=== PATIENT | female | born 1980 | race African-American/Black ===

== ENCOUNTER 2020-06-12 17:15 | Emergency (ER) | payer OTHER ==
--- NOTE | 2020-06-12 20:06 | RAD REPORT ---
EXAM DESCRIPTION: Meghann Single View06/12/2020 7:49 pm CLINICAL HISTORY: Chest pain COMPARISON: none FINDINGS: The lungs appear clear of acute infiltrate. The heart is normal size IMPRESSION: No acute abnormalities displayed
[2020-06-12 20:13] LABS: Urine Blood 3+ (NEG); Urine Glucose NEGATIVE (NEG); Urine Protein NEGATIVE (NEG); Urine pH 6.5 (5.0-7.0)
[2020-06-12 20:17] LABS: Absolute Lymphocytes (CBC) 1.8 K/uL (0.7-4.9); Basophils % 1.2 % (0-1.3); Hematocrit 35.3 % (36.0-45.0); MPV 9.2 fL (7.6-11.3); RBC Red Blood Cell Count 4.06 M/uL (3.86-4.86)
[2020-06-12 20:18] LABS: Protime INR 1.09
[2020-06-12 20:36] LABS: ALT/SGPT 25 U/L (12-78); AST/SGOT 22 U/L (15-37); Albumin 3.8 g/dL (3.4-5.0); Alkaline Phosphatase 108 U/L (45-117); BUN Blood Urea Nitrogen 9 mg/dL (7-18); Bicarbonate 26 mmol/L (21-32); Bilirubin Direct < 0.1 mg/dL (0-0.2); Bilirubin Total 0.2 mg/dL (0.2-1.0); Glucose Level 97 mg/dL (74-106); Magnesium 1.9 mg/dL (1.8-2.4); NT PRO-BNP 32 pg/mL (<125); Potassium 3.6 mmol/L (3.5-5.1); Protein, Total 8.2 g/dL (6.4-8.2); Sodium Level 141 mmol/L (136-145); Troponin (Emerg Dept Use Only) < 0.02 ng/mL (0.0-0.045)
[2020-06-12 20:57] LABS: Barbiturates NEGATIVE (NEGATIVE); Benzodiazepines NEGATIVE (NEGATIVE); Cocaine NEGATIVE (NEGATIVE); METHAMPHETAM NEGATIVE (NEGATIVE); Methadone NEGATIVE (NEGATIVE); Opiates NEGATIVE (NEGATIVE); Phencyclidine NEGATIVE (NEGATIVE); THC Cannibis NEGATIVE (NEGATIVE)
--- NOTE | 2020-06-12 21:08 | ER ---
Nurse's Notes [facility] Name: Abelardo Dejesus Age: 40 yrs Sex: Female : 1980 Arrival Date: 06/12/2020 Time: 17:20 Bed 7 Private MD: Diagnosis: Palpitations Presentation: 06/12 17:24 Chief complaint: Patient states: has been having anxiety attacks since last week. She sv stated that she went to get her physical done and they sent her to a welder shielded metal arc to get an EKG done. Her welder shielded metal arc gave her another f/u appt for June 16. But states since then feels "like my heart is melting. I think I'm thinking too much about it but I don't know." Is scheduled for an Echo on . Coronavirus screen: Client denies travel out of the [place] in the last 14 days. At this time, the client does not indicate any symptoms associated with coronavirus-19. Ebola Screen: No symptoms or risks identified at this time. Risk Assessment: Do you want to hurt yourself or someone else? Patient reports no desire to harm self or others. Onset of symptoms was May 2020. 17:24 Method Of Arrival: Ambulatory sv 17:24 Acuity: JOSESITO 3 sv 17:28 Initial Sepsis Screen: Does the patient meet any 2 criteria? No. Patient's initial sv sepsis screen is negative. Does the patient have a suspected source of infection? No. Patient's initial sepsis screen is negative. Triage Assessment: 17:24 General: Appears in no apparent distress. comfortable, Behavior is calm, cooperative, sv appropriate for age. Pain: Denies pain. Neuro: Level of Consciousness is awake, alert, obeys commands, Oriented to person, place, time, situation, Moves all extremities. Full function Gait is steady. Respiratory: Respiratory effort is even, unlabored, Respiratory pattern is regular, symmetrical. 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 - Social history:: Smoking status: . Screenin:30 Abuse screen: Denies threats or abuse. Denies injuries from another. Nutritional screening: No deficits noted. Tuberculosis screening: No symptoms or risk factors identified. Fall Risk None identified. Assessment: 17:34 Reassessment: Received VO from Dr Castaneda for EKG. sv 19:15 General: Appears in no apparent distress. Anxious. Behavior is cooperative, anxious. wh Pain: Denies pain. Neuro: Level of Consciousness is awake, alert, obeys commands, Oriented to person, place, time, situation. Cardiovascular: Capillary refill < 3 seconds. Respiratory: Airway is patent Respiratory effort is even, unlabored, Respiratory pattern is regular, symmetrical. GI: Abdomen is flat, non-distended. : No signs and/or symptoms were reported regarding the genitourinary system. EENT: No signs and/or symptoms were reported regarding the EENT system. Derm: Skin is intact, is healthy with good turgor, Skin is pink, warm \\T\\ dry. normal. Musculoskeletal: Circulation, motion, and sensation intact. 20:15 Reassessment: Patient appears in no apparent distress at this time. No changes from previously documented assessment. Patient and/or family updated on plan of care and expected duration. Pain level reassessed. Patient is alert, oriented x 3, equal unlabored respirations, skin warm/dry/pink. 21:21 Reassessment: Patient appears in no apparent distress at this time. Patient and/or family updated on plan of care and expected duration. Pain level reassessed. Patient is alert, oriented x 3, equal unlabored respirations, skin warm/dry/pink. Vital Signs: 17:28 BP 109 / 75; Pulse 76; Resp 16; Temp 98; Pulse Ox 99% ; Weight 92.99 kg; Height 5 ft. 6 sv in. (167.64 cm); Pain 0/10; 20:16 BP 110 / 91; Pulse 78; Resp 18; Pulse Ox 99% on R/A; wh 21:21 BP 107 / 68; Pulse 72; Resp 18; Pulse Ox 99% on R/A; wh 17:28 Body Mass Index 33.09 (92.99 kg, 167.64 cm) sv ED Course: 17:20 Patient arrived in ED. mr 17:24 Arm band placed on. sv 17:27 Triage completed. sv 17:34 EKG completed in triage. Results shown to MD. sv 19:14 Harvinder Pearson, YAJAIRA is PHCP. pm1 19:14 Abner Franco MD is Attending Physician. pm1 19:26 Farhat Koenig, RN is Primary Nurse. 19:30 Patient has correct armband on for positive identification. Placed in gown. Bed in low wh position. Call light in reach. Side rails up X 1. court monitor on. Pulse ox on. NIBP on. 19:45 Inserted saline lock: 22 gauge in right forearm, using aseptic technique. Blood wh collected. 19:50 XRAY Chest (1 view) In Process Unspecified. EDMS 21:22 No provider procedures requiring assistance completed. IV discontinued, intact, wh bleeding controlled, No redness/swelling at site. Administered Medications: No medications were administered Outcome: 21:07 Discharge ordered by . pm1 21:22 Discharged to home ambulatory. wh 21:22 Condition: stable 21:22 Discharge instructions given to patient, Instructed on discharge instructions, follow up and referral plans. POC Demonstrated understanding of instructions, follow-up care, POC 21:22 Patient left the ED. Signatures: Dispatcher [employer] EDNH Romina Richardson RN RN Moira Justice mr Harvinder Pearson NP STORE FACILITY TECHNICIAN pm1 Farhat Koenig, NORMAN AUSTIN Corrections: (The following items were deleted from the chart) 17:30 17:24 Chief complaint: Patient states: has been having anxiety attacks since last week. sv She stated that she went to get her physical done and they sent her to a welder shielded metal arc to get an EKG done. Her welder shielded metal arc gave her another f/u appt for June 16. But states since then feels "like my heart is melting. I think I'm thinking too much about it but I don't know." sv 17:49 17:28 BP 109 / 75; Pulse 76bpm; Resp 16bpm; Pulse Ox 99%; Temp 98F; 92.99 kg; Height 5 sv ft. 6 in.; BMI: 33.0; sv
--- NOTE | 2020-06-12 21:08 | EDPHYS ---
Physician Documentation [facility] Name: Abelardo Dejesus Age: 40 yrs Sex: Female : 1980 Arrival Date: 06/12/2020 Time: 17:20 Bed 7 Private MD: ED Physician Abner Franco HPI: 06/12 19:39 This 40 yrs old Black Female presents to ER via Ambulatory with complaints of Anxiety. pm1 19:39 The patient presents with a history of heart racing. Context: The symptoms occur at pm1 rest, with anxiety. Onset: The symptoms/episode began/occurred 1 week(s) ago. Duration: The patient or guardian reports multiple episodes. Modifying factors: The symptoms are aggravated by stress, worry about follow up with specialist regarding abnormal EKG per PCP. Associated signs and symptoms: Pertinent negatives: chest pain, cough, fever, SOB, vertigo, vomiting. Severity of symptoms: in the emergency department the symptoms are worse. The patient has been recently seen by a physician: a non categorical preschool teacher, and was scheduled for a chest x-ray in a few weeks. 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 - Social history:: Smoking status: . ROS: 19:39 Constitutional: Negative for fever, chills, and weight loss, Cardiovascular: Negative pm1 for chest pain, palpitations, and edema, Respiratory: Negative for shortness of breath, cough, wheezing, and pleuritic chest pain. 19:39 Abdomen/GI: Negative for abdominal pain, nausea, vomiting, diarrhea, and constipation. 19:39 Back: Negative for injury and pain, MS/Extremity: Negative for injury and deformity, Skin: Negative for injury, rash, and discoloration, Neuro: Negative for headache, weakness, numbness, tingling, and seizure. 19:39 Cardiovascular: Positive for palpitations, Negative for chest pain, edema. Exam: 19:39 Constitutional: This is a well developed, well nourished patient who is awake, alert, pm1 and in no acute distress. Head/Face: Normocephalic, atraumatic. Chest/axilla: Normal chest wall appearance and motion. Nontender with no deformity. No lesions are appreciated. 19:39 Back: No spinal tenderness. No costovertebral tenderness. Full range of motion. Skin: Warm, dry with normal turgor. Normal color with no rashes, no lesions, and no evidence of cellulitis. MS/ Extremity: Pulses equal, no cyanosis. Neurovascular intact. Full, normal range of motion. 19:39 Cardiovascular: Rate: normal, Rhythm: regular, Pulses: no pulse deficits are appreciated, Edema: is not appreciated. 19:39 Respiratory: Exam negative for acute changes, respiratory distress, shortness of breath. 19:39 Neuro: Exam negative for acute changes, Orientation: is normal, Mentation: is normal, Motor: is normal, moves all fours. Vital Signs: 17:28 BP 109 / 75; Pulse 76; Resp 16; Temp 98; Pulse Ox 99% ; Weight 92.99 kg; Height 5 ft. 6 sv in. (167.64 cm); Pain 0/10; 20:16 BP 110 / 91; Pulse 78; Resp 18; Pulse Ox 99% on R/A; wh 21:21 BP 107 / 68; Pulse 72; Resp 18; Pulse Ox 99% on R/A; wh 17:28 Body Mass Index 33.09 (92.99 kg, 167.64 cm) sv MDM: 19:23 Patient medically screened. pm1 20:47 Data reviewed: vital signs. Data interpreted: Pulse oximetry: on room air is 99 %. pm1 Interpretation: normal. 21:07 Counseling: I had a detailed discussion with the patient and/or guardian regarding: the pm1 historical points, exam findings, and any diagnostic results supporting the discharge/admit diagnosis, lab results, radiology results, the need for outpatient follow up, to return to the emergency department if symptoms worsen or persist or if there are any questions or concerns that arise at home. 06/12 19:24 Order name: Basic Metabolic Panel pm1 06/12 19:24 Order name: CBC with Diff; Complete Time: 20:46 pm1 06/12 19:24 Order name: LFT's; Complete Time: 21:07 pm1 06/12 19:24 Order name: Magnesium; Complete Time: 21:07 pm1 06/12 19:24 Order name: NT PRO-BNP; Complete Time: 21:07 pm1 06/12 19:24 Order name: PT-INR; Complete Time: 20:46 pm1 06/12 19:24 Order name: Troponin (emerg Dept Use Only); Complete Time: 21:07 pm1 06/12 19:24 Order name: XRAY Chest (1 view); Complete Time: 20:15 pm1 06/12 19:24 Order name: UDS; Complete Time: 21:07 pm1 06/12 19:25 Order name: Basic Metabolic Panel; Complete Time: 21:07 EDMS 06/12 20:05 Order name: Urine Dipstick--Ancillary (enter results); Complete Time: 20:15 mt 06/12 20:05 Order name: Urine --Ancillary (enter results); Complete Time: 20:15 mt 06/12 20:29 Order name: Add On-Lab pm06/12 20:37 Order name: Thyroid Stimulating Hormone; Complete Time: 21:07 EDMS 06/12 17:47 Order name: EKG; Complete Time: 17:48 sv 06/12 17:47 Order name: EKG - Nurse/Tech; Complete Time: 17:47 sv 06/12 19:24 Order name: Cardiac monitoring; Complete Time: 20:01 pm1 06/12 19:24 Order name: IV Saline Lock; Complete Time: 20:01 pm1 06/12 19:24 Order name: Labs collected and sent; Complete Time: 20:01 pm1 06/12 19:24 Order name: O2 Per Protocol; Complete Time: 20:01 pm1 06/12 19:24 Order name: O2 Sat Monitoring; Complete Time: 20:01 pm1 06/12 19:24 Order name: Urine Dipstick-Ancillary (obtain specimen); Complete Time: 20:01 pm1 06/12 19:24 Order name: Urine Test (obtain specimen); Complete Time: 20:01 pm1 Administered Medications: No medications were administered Disposition: 06/13 03:50 Co-signature as Attending Physician, Abner Franco MD. [email or web address] Disposition: 06/12/20 21:07 Discharged to Home. Impression: Palpitations. - Condition is Stable. - Discharge Instructions: Palpitations. - Medication Reconciliation Form, Thank You Letter, Antibiotic Education, Prescription Opioid Use form. - Follow up: Emergency Department; When: As needed; Reason: Worsening of condition. Follow up: Private Physician; When: 2 - 3 days; Reason: Recheck today's complaints, Continuance of care, Re-evaluation by your physician. - Problem is new. - Symptoms have improved. Signatures: Dispatcher [employer] EDRomina Liu RN Harvinder Hanley, YAJAIRA OB NURSE pm1 Farhat Koenig RN RN Abner Franco MD MD 7 Corrections: (The following items were deleted from the chart) 06/12 21:22 21:07 06/12/2020 21:07 Discharged to Home. Impression: Palpitations. Condition is wh Stable. Forms are Medication Reconciliation Form, Thank You Letter, Antibiotic Education, Prescription Opioid Use. Follow up: Emergency Department; When: As needed; Reason: Worsening of condition. Follow up: Private Physician; When: 2 - 3 days; Reason: Recheck today's complaints, Continuance of care, Re-evaluation by your physician. Problem is new. Symptoms have improved. pm1
[2020-06-13 01:35] VITALS: TEMP 98; O2SAT 99
[2020-06-13 01:37] VITALS: BP 107/68
--- NOTE | 2020-06-13 17:11 | EKG ---
Test Date: 2020-06-12 Test Time: 17:34:00 Inventory Associate: MILTON MEASUREMENT RESULTS: Intervals: Rate: 83 TN: 156 QRSD: 74 QT: 360 QTc: 423 [place]: P: 53 TN: 156 QRS: 13 T: 43 INTERPRETIVE STATEMENTS: Normal sinus rhythm Low voltage QRS Borderline ECG No previous ECG available for comparison Electronically Signed On 06-13-20 17:06:24 HIGH SCHOOL SOCIAL STUDIES TEACHER by Telly Espino
== END 2020-06-12 21:22 | disposition home or self-care (01) ==
LOC: ER 17:15
DX: R00.2 Palpitations (principal)
CPT/HCPCS: 36415; 71045; 80048; 80076; 80307; 81003; 81025; 83735; 83880; 84443; 84484; 85025; 85610; 93005; 99284